=== PATIENT | female | born 1995 | race Caucasian/White ===

== ENCOUNTER 2020-08-04 08:34 | Emergency (ER) | payer MEDICAID ==
[~2020-08-04] VITALS: Ht 167.6 cm; Wt 143.2 kg
[~2020-08-04 08:34] MED LIST: PHEN-786 PO
[2020-08-04 08:36] VITALS: BP 147/101
[2020-08-04] MEDS ORDERED: ACET-1017 PO (09:24)
[2020-08-04] MEDS ORDERED: IBUP-1984 PO (09:24)
== END 2020-08-04 09:55 | disposition home or self-care (01) ==
LOC: ER 08:35
DX: G56.02 Carpal tunnel syndrome, left upper limb (principal); M25.532 Pain in left wrist; F31.9 Bipolar disorder, unspecified; F12.90 Cannabis use, unspecified, uncomplicated; Z98.890 Other specified postprocedural states; Z88.8 Allergy status to other drugs, medicaments and biological substances; Z79.899 Other long term (current) drug therapy
CPT/HCPCS: 29125; 99282; 99283